=== PATIENT | female | born 1970 | race Caucasian/White ===

== ENCOUNTER → 2016-03-25 | Outpatient (CLI) | payer OTHER ==
--- NOTE | 2016-03-25 16:47 | MA ---
Screening Digital Mammogram Clinical Indications: Routine screening. Mother with breast cancer at age 62. Technique: Standard cephalocaudal and mediolateral oblique projections are obtained. This examinati on was processed by the [employer] computer aided detection system. Comparison: Breast MRI October 2015, mammography March 2015, February 2014 and February 2013 Breast density: C; The breast tissue is heterogeneously dense, which could obscure detection of small masses. Findings: CAD was reviewed. No suspicious findings are identified. Impression: Negative mammogram. BI-RADS 1. Recommendation: Routine screening is recommended in one year, as long as physical examination is josi ign in this patient with moderately dense breast parenchyma. [facility] will send a result letter to the patient. Negative mammography should not preclude additional workup of a clinically suspicious finding. The patient's information is entered into a reminder system with a target due date for her next mammo gram.
== END ==
LOC: BMCIMAGING 13:57
DX: Z12.31 Encounter for screening mammogram for malignant neoplasm of breast (principal); Z80.3 Family history of malignant neoplasm of breast
CPT/HCPCS: G0202

== ENCOUNTER → 2016-09-08 | Outpatient (CLI) | payer OTHER | LOC: BMCIMAGING 13:46 | PROVIDERS: ATTEND Physician Assistant | DX: M25.551 Pain in right hip (principal); M25.552 Pain in left hip ==

== ENCOUNTER → 2016-10-26 | Outpatient (CLI) | payer OTHER | LOC: BMCIMAGING 13:40 | PROVIDERS: ATTEND Physician Assistant | DX: N83.292 Other ovarian cyst, left side (principal); N83.291 Other ovarian cyst, right side; Z15.01 Genetic susceptibility to malignant neoplasm of breast ==

== ENCOUNTER → 2016-11-01 | Outpatient (CLI) | payer OTHER ==
[~2016-11-01] MED LIST: GADOBUTROL 10 ML VIAL IVP ONE
== END ==
LOC: FIMAGING 07:15
PROVIDERS: ATTEND Physician Assistant
DX: Z53.8 Procedure and treatment not carried out for other reasons (principal)
CPT/HCPCS: A9585

== ENCOUNTER → 2016-11-18 | Outpatient (CLI) | payer OTHER | LOC: FIMAGING 12:38 | PROVIDERS: ATTEND Physician Assistant | DX: Z12.39 Encounter for other screening for malignant neoplasm of breast (principal); Z15.01 Genetic susceptibility to malignant neoplasm of breast; Z80.3 Family history of malignant neoplasm of breast | CPT/HCPCS: 0159T; 77059; A9585; C8908 ==

== ENCOUNTER 2016-12-19 09:16 | Emergency (ER) | payer OTHER ==
--- NOTE | 2016-12-19 09:40 | CPEKG ---
Heart Rate: 69 RR Interval: 870 P-R Interval: 148 QRSD Interval: 70 QT Interval: 400 QTC Interval: 429 P [place]: 37 QRS [place]: 50 T Wave [place]: 37 EKG Severity - NORMAL ECG - EKG Impression: SINUS RHYTHM Electronically Signed By: Ildefonso Gooden 19-Dec-2016 14:15:47
[2016-12-19] MEDS ORDERED: NS 1,000 ML IV ONE (10:22)
--- NOTE | 2016-12-19 10:22 | EDPHY ---
H & P Time Seen by Provider: 12/19/16 10:21 HPI/ROS: Chief complaint. Chest tightness, rapid heart rate HPI. 46-year-old female presents emergency department with 1 month history of intermittent sense of rapid heartbeat and chest tightness when she has the sense of rapid heart beat. In between times she has no symptoms. She occasionally has headache and occasionally feels tired. Her boyfriend last night was listening to her chest and felt that she was having some skipped beats. The patient has sense of fluttering and tightness. She notes increased stress at work. She has also perimenopausal. However her father did have an MD at age 45. She did see her regular physician for this a few weeks ago and had a normal EKG. She was then referred to the emergency department today for these symptoms ROS Constitutional. no fever/chills, no weakness Eyes. no problems with vision ENT. no sore throat, no nasal drainage Cardiovascular. Chest tightness and palpitations Respiratory. no shortness of breath, no cough Abdominal. no abdominal pain, no nausea/vomiting, no diarrhea . no problems urinating MS. no calf pain/swelling, no neck/back pain, no joint pain Skin. no rash Lymph. no swollen glands Neuro. no headache, no dizziness, no difficulty walking or with speech Past Medical/Surgical History: Healthy Family history father MD age 40 Social History: Single, nonsmoker, no alcohol Smoking Status: Never smoked Physical Exam: General Appearance: Alert pleasant well-developed female mild distress vital signs are stable Eyes: Pupils equal and round no pallor or injection. ENT, Mouth: Mucous membranes are moist. Respiratory: There are no retractions, lungs are clear to auscultation. Cardiovascular: Regular rate and rhythm. Gastrointestinal: Abdomen is soft and nontender, no masses, bowel sounds normal. Neurological: Awake and alert, sensory and motor exams grossly normal. Skin: Warm and dry, no rashes. Musculoskeletal: Neck is supple nontender. Extremities symmetrical, full range of motion. Psychiatric: Patient is oriented X 3, there is no agitation. Constitutional: Initial Vital Signs Temperature (C) 36.5 C 12/19/16 09:22 Heart Rate 78 12/19/16 09:22 Respiratory Rate 16 12/19/16 09:22 Blood Pressure 119/81 H 12/19/16 09:22 O2 Sat (%) 97 12/19/16 09:22 O2 Delivery Mode Room Air Allergies/Adverse Reactions: No Known Allergies Allergy (Unverified 12/19/16 09:21) Home Medications: Medication Instructions Recorded NK [No Known Home Meds] 12/19/16 Medical Decision Making - Diagnostics EKG Interpretation: EKG interpreted by me shows normal sinus rhythm with normal interval and axis. QRS is normal there is no significant ST elevation or depression. There is no arrhythmia. The rate is 69 Imaging Results: Imaging Impressions Chest X-Ray 12/19/16 11:17 Impression: Normal. Chest x-ray interpreted by me is normal Procedures: IV normal saline, monitor. Occasional PVC seen on the monitor ED Course/Re-evaluation: Re-evaluation 1145 a.m.. Patient is stable. Patient and I discussed lab and imaging EKG studies we discussed treatment plan including criteria for return importance of follow-up and further evaluation. She expresses understanding and agreement. Patient already has a prescription for Ativan from her PCP Differential Diagnosis: Palpitations with normal workup. I considered pulmonary embolus, electrolyte abnormalities, acute coronary syndrome. Patient is under stress as well as nancy menopausal. - Data Points Laboratory Results: Laboratory Results 12/19/16 09:45 12/19/16 09:45 12/19/16 12/19/16 12/19/16 09:45 09:45 09:45 WBC 6.44 10^3/uL 10^3/uL (3.80-9.50) RBC 4.81 10^6/uL 10^6/uL (4.18-5.33) Hgb 14.9 g/dL g/dL (12.6-16.3) Hct 43.3 % % (38.0-47.0) MCV 90.0 fL fL (81.5-99.8) MCH 31.0 pg pg (27.9-34.1) MCHC 34.4 g/dL g/dL (32.4-36.7) RDW 12.0 % % (11.5-15.2) Plt Count 226 10^3/uL 10^3/uL (150-400) MPV 11.9 fL H fL (8.7-11.7) Neut % (Auto) 62.3 % % (39.3-74.2) Lymph % (Auto) 26.4 % % (15.0-45.0) [facility] % (Auto) 7.6 % % (4.5-13.0) Eos % (Auto) 1.9 % % (0.6-7.6) Baso % (Auto) 1.6 % % (0.3-1.7) Nucleat RBC Rel Count 0.0 % % (0.0-0.2) Absolute Neuts (auto) 4.02 10^3/uL 10^3/uL (1.70-6.50) Absolute Lymphs (auto) 1.70 10^3/uL 10^3/uL (1.00-3.00) Absolute Monos (auto) 0.49 10^3/uL 10^3/uL (0.30-0.80) Absolute Eos (auto) 0.12 10^3/uL 10^3/uL (0.03-0.40) Absolute Basos (auto) 0.10 10^3/uL 10^3/uL (0.02-0.10) Absolute Nucleated RBC 0.00 10^3/uL 10^3/uL (0-0.01) Immature Gran % 0.2 % % (0.0-1.1) Immature Gran # 0.01 10^3/uL 10^3/uL (0.00-0.10) D-Dimer < 0.27 ug/mLFEU ug/mLFEU (0.00-0.50) Sodium 140 mEq/L mEq/L (134-144) Potassium 4.0 mEq/L mEq/L (3.5-5.2) Chloride 105 mEq/L mEq/L (97-110) Carbon Dioxide 25 mEq/l mEq/l (22-31) Anion Gap 10 mEq/L mEq/L (8-16) BUN 14 mg/dL mg/dL (7-23) Creatinine 0.9 mg/dL mg/dL (0.6-1.0) Estimated GFR > 60 Glucose 77 mg/dL mg/dL (70-100) Calcium 9.7 mg/dL mg/dL (8.5-10.4) Troponin I < 0.012 ng/mL ng/mL (0.000-0.034) TSH 1.510 uIU/mL uIU/mL (0.465-4.680) Medications Given: Discontinued Medications Sodium Chloride (Ns) 1,000 mls @ 0 mls/hr IV EDNOW ONE; Wide Open PRN Reason: Protocol Stop: 12/19/16 10:23 Last Admin: 12/19/16 10:48 Dose: 1,000 mls Departure - Departure Disposition: Home, Routine, Self-Care Clinical Impression: Palpitations Condition: Good Instructions: Palpitations (ED) Additional Instructions: Continue exercise, ocular puncture. Use Ativan when you need for stress. Return for worsening symptoms. I will give you the name of csw for consideration of stress test because of your family history Referrals: Kelley Cobb PA [Primary Care Provider] - As per Instructions Brad Herrera MD [Medical Doctor] - As per Instructions
[2016-12-19 10:27] LABS: % IMMATURE GRANULYOCYTES 0.2 % (0.0-1.1); ABSOLUTE IMMATURE GRANULOCYTES 0.01 10^3/uL (0.00-0.10); ADD DIFF? NO; ADD MORPH? NO; ADD SCAN? NO; ATYPICAL LYMPHOCYTE FLAG 0 (0-99); FRAGMENT RBC FLAG 0 (0-99); HEMATOCRIT 43.3 % (38.0-47.0); HEMOGLOBIN 14.9 g/dL (12.6-16.3); LEFT SHIFT FLG 0 (0-99); LIPEMIA HEMOLYSIS FLAG 90 (0-99); MEAN CELL HEMOGLOBIN CONCENTR. 34.4 g/dL (32.4-36.7); MEAN PLATELET VOLUME 11.9 fL (8.7-11.7); PLATELET CLUMPS FLAG 0 (0-99); PLATELET COUNT 226 10^3/uL (150-400); RED BLOOD CELL COUNT 4.81 10^6/uL (4.18-5.33)
[2016-12-19 10:35] LABS: CALCIUM 9.7 mg/dL (8.5-10.4); CARBON DIOXIDE 25 mEq/l (22-31); CHLORIDE 105 mEq/L (97-110); CREATININE 0.9 mg/dL (0.6-1.0); GLOMERULAR FILTRATION RATE > 60; GLUCOSE 77 mg/dL (70-100); SODIUM 140 mEq/L (134-144)
[2016-12-19 10:47] LABS: TROPONIN I < 0.012 ng/mL (0.000-0.034)
[2016-12-19 10:55] LABS: ANION GAP 10 mEq/L (8-16)
[2016-12-19 12:07] VITALS: BP 108/71; PULSE 71; RESP 18; TEMP 97.2; O2SAT 98
== END 2016-12-19 12:08 | disposition home or self-care (01) ==
DX: R00.2 Palpitations (principal)

== ENCOUNTER → 2017-03-31 | Outpatient (CLI) | payer OTHER | LOC: FIMAGING 08:23 | PROVIDERS: ATTEND Physician Assistant | DX: Z12.31 Encounter for screening mammogram for malignant neoplasm of breast (principal); Z80.3 Family history of malignant neoplasm of breast ==

== ENCOUNTER → 2018-03-23 | Outpatient (CLI) | payer OTHER | LOC: BMCIMAGING 09:09 | PROVIDERS: ATTEND Family Medicine | DX: R05 Cough (principal) ==

== ENCOUNTER → 2018-05-04 | Outpatient (CLI) | payer OTHER | LOC: BMCIMAGING 08:45 ==

== ENCOUNTER → 2018-05-23 | Outpatient (CLI) | payer OTHER | LOC: FIMAGING 15:05 | PROVIDERS: ATTEND Physician Assistant | DX: Z12.31 Encounter for screening mammogram for malignant neoplasm of breast (principal); Z80.3 Family history of malignant neoplasm of breast ==